=== PATIENT | female | born 1975 | race Asian ===

== ENCOUNTER 2017-08-30 08:17 | Emergency (ER) | payer BC ==
[2017-08-30 08:23] VITALS: BP 102/65
--- NOTE | 2017-08-30 08:51 | ER Document Report ---
ED Respiratory Problem - General Chief Complaint: Cough Stated Complaint: COUGH Time Seen by Provider: 08/30/17 08:31 Mode of Arrival: Ambulatory Information source: Patient Notes: Jazmín was used for history for Mandarin Arabic: 42-year-old female complaining of a cough for 2 months. She had hemoptysis 3 weeks ago it is getting a lot with only had specks of blood now. She has no chest pain or shortness of breath. No nausea vomiting or diarrhea. No abdominal pain. No fever. 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 sHe came today because her mother and father told her she needed to be checked out. She wants a chest x-ray and lab work. No history of surgery, anticoagulants, NSAIDs, aspirin. - Related Data Allergies/Adverse Reactions: No Known Allergies Allergy (Verified 08/30/17 09:10) Past Medical History - General Information source: Patient - Social History Smoking Status: Never Smoker Frequency of alcohol use: None Drug Abuse: None Lives with: Family Family History: Reviewed & Not Pertinent Other: PPD skin test converter, preventive meds for 6 months. Surgical Hx: Negative Review of Systems - Review of Systems Constitutional: No symptoms reported EENT: No symptoms reported Cardiovascular: No symptoms reported Respiratory: See HPI Gastrointestinal: No symptoms reported Genitourinary: No symptoms reported Female Genitourinary: No symptoms reported Musculoskeletal: No symptoms reported Skin: No symptoms reported Hematologic/Lymphatic: No symptoms reported Neurological/Psychological: No symptoms reported Physical Exam - Vital signs Vitals: Temp Pulse Resp BP Pulse Ox 98.3 F 58 L 14 102/65 100 08/30/17 08:21 08/30/17 08:21 08/30/17 08:21 08/30/17 08:21 08/30/17 08:21 Interpretation: Normal - General General appearance: Appears well, Alert - HEENT Head: Normocephalic, Atraumatic Eyes: Normal Conjunctiva: Normal Pupils: PERRL Pharynx: Normal Neck: Supple. No: Lymphadenopathy - Respiratory Respiratory status: No respiratory distress Chest status: Nontender Breath sounds: Normal Chest palpation: Normal - Cardiovascular Rhythm: Regular Heart sounds: Normal auscultation Murmur: No - Abdominal Inspection: Normal Distension: No distension Bowel sounds: Normal Tenderness: Nontender Organomegaly: No organomegaly - Back Back: Normal, Nontender - Extremities General upper extremity: Normal inspection, Nontender, Normal color, Normal ROM , Normal temperature General lower extremity: Normal inspection, Nontender, Normal color, Normal ROM , Normal temperature, Normal weight bearing. No: Owen's sign - Neurological Neuro grossly intact: Yes Cognition: Normal Orientation: AAOx4 Shelli Coma Scale Eye Opening: Spontaneous [place] Coma Scale Verbal: Oriented [place] Coma Scale Motor: Obeys Commands Shelli Coma Scale Total: 15 Speech: Normal Motor strength normal: LUE, RUE, LLE, RLE Sensory: Normal - Psychological Associated symptoms: Normal affect, Normal mood - Skin Skin Temperature: Warm Skin Moisture: Dry Skin Color: Normal Skin irregularity: negative: Rash Course - Re-evaluation Re-evalutation: 08/30/17 10:59 Chest x-ray is negative per rad. Lab work shows mildly elevated AST 53, and total bilirubin. Direct bili is negative. Coags are negative. Her son is translating for her at this time for the discharge instructions and they understand everything. - Vital Signs Vital signs: Temp Pulse Resp BP Pulse Ox 98.3 F 58 L 14 102/65 100 08/30/17 08:21 08/30/17 08:21 08/30/17 08:21 08/30/17 08:21 08/30/17 08:21 - Laboratory Result Diagrams: 08/30/17 09:59 08/30/17 09:59 Laboratory results interpreted by me: 08/30/17 09:59 Carbon Dioxide 31 H Creatinine 0.46 L Total Bilirubin 1.5 H AST 53 H Discharge - Discharge Clinical Impression: Chronic cough, Hemoptysis, Elevated liver enzymes Condition: Good Disposition: HOME, SELF-CARE Instructions: Hemoptysis ([facility]), Liver Function Abnormality ([facility]) Additional Instructions: call and schedule appointment with the police investigator about the chronic cough and coughing up blood, he may have to do a bronchoscopy copy of labs given to you to er if worse Call and schedule appointment with Dr. Murphy for your routine care he will have to recheck the liver enzymes to see if they return to normal Referrals: TC MURPHY MD [ACTIVE STAFF] - Follow up in 3-5 days LIV RODNEY MD [ACTIVE STAFF] - Follow up in 1 week
--- NOTE | 2017-08-30 10:10 | RADIOLOGY REPORT (SQ) ---
EXAM DESCRIPTION: CHEST 2 VIEWS COMPLETED DATE/TIME: 08/30/2017 9:37 am REASON FOR STUDY: hx PPD converterk, hemoptysis COMPARISON: None. EXAM PARAMETERS: NUMBER OF VIEWS: two views TECHNIQUE: Digital Frontal and Lateral radiographic views of the chest acquired. RADIATION DOSE: NA LIMITATIONS: none FINDINGS: LUNGS AND PLEURA: No opacities, masses or pneumothorax. No pleural effusion. No focal inf iltrates. No cavitary lesions. MEDIASTINUM AND HILAR STRUCTURES: No masses or contour abnormalities. HEART AND VASCULAR STRUCTURES: Heart normal size. No evidence for failure. BONES: No acute findings. HARDWARE: None in the chest. OTHER: No other significant finding. IMPRESSION: NO ACUTE RADIOGRAPHIC FINDING IN THE CHEST. TECHNICAL DOCUMENTATION: JOB ID: [id number] [employer]- All Rights Reserved Reading location - IP/workstation name: [email or web address]
[2017-08-30 10:29] LABS: ALANINE AMINOTRANSFERASE 39 U/L (9-52); ALBUMIN 4.2 g/dL (3.5-5.0); ALKALINE PHOSPHATASE 74 U/L (38-126); ANION GAP 6 (5-19); ASPARTATE AMINO TRANSFERASE 53 U/L (14-36); BILIRUBIN,DIRECT 0.3 mg/dL (0.0-0.4); BILIRUBIN,TOTAL 1.5 mg/dL (0.2-1.3); BLOOD UREA NITROGEN 12 mg/dL (7-20); CALCIUM 8.6 mg/dL (8.4-10.2); CARBON DIOXIDE 31 mmol/L (22-30); CHLORIDE 106 mmol/L (98-107); GLUCOSE 97 mg/dL (75-110); SODIUM 142.8 mmol/L (137-145); TOTAL PROTEIN 7.8 g/dL (6.3-8.2)
[2017-08-30 10:36] LABS: ABSOLUTE EOSINOPHILS # (AUTO) 0.1 10^3/uL (0.0-0.6); ABSOLUTE LYMPHOCYTES (AUTO) 1.6 10^3/uL (0.5-4.7); ABSOLUTE MONOCYTES (AUTO) 0.4 10^3/uL (0.1-1.4); ABSOLUTE NEUT (AUTO) 3.1 10^3/uL (1.7-8.2); BASOPHILS % (AUTO) 0.8 % (0-2); EOSINOPHILS % (AUTO) 2.7 % (0-6); HEMOGLOBIN 13.6 g/dL (12.0-15.5); LYMPHOCYTES % (AUTO) 30.1 % (13-45); MEAN CORPUSCULAR HGB CONC 33.9 g/dL (32.0-36.0); MEAN CORPUSCULAR VOLUME 89 fl (80-97); PLATELET COUNT 167 10^3/uL (150-450); RED BLOOD COUNT 4.52 10^6/uL (3.72-5.28); RED CELL DISTRIBUTION WIDTH 12.8 % (11.5-14.0); SEGMENTED NEUTROPHILS % (AUTO) 58.4 % (42-78); TOTAL CELLS COUNTED % (AUTO) 100 %; WHITE BLOOD COUNT 5.4 10^3/uL (4.0-10.5)
[2017-08-30 10:41] LABS: INTERNATIONAL RATION (INR) 0.93; PROTHROMBIN TIME 12.9 SEC (11.4-15.4)
[2017-08-30 10:42] LABS: PARTIAL THROMBOPLASTIN TIME 30.5 SEC (23.5-35.8)
== END 2017-08-30 11:41 | disposition home or self-care (01) ==
LOC: ER 08:17
DX: R04.2 Hemoptysis (principal); R94.5 Abnormal results of liver function studies
CPT/HCPCS: 36415; 71046; 80053; 85025; 85610; 85730; 99284